=== PATIENT | male | born 1940 | race Caucasian/White ===

== ENCOUNTER 2018-05-23 07:48 | Day surgery (SDC) | payer MEDICARE, BC ==
[~2018-05-23 07:48] MED LIST: Lactated Ringers 1,000 ML IV SCH
[2018-05-23] MEDS ORDERED: Midazolam 1 MG/ML 2 ML SDV ONE (08:32)
[2018-05-23] MEDS ORDERED: fentaNYL 100 MCG/2 ML SDV ONE (08:32)
[2018-05-23] MEDS ORDERED: Propofol 200 MG/20 ML SDV ONE ×2 (08:32→10:59)
[2018-05-23] MEDS ORDERED: Lidocaine 2% 5 ML SDV ONE (08:35)
[2018-05-23] MEDS ORDERED: ePHEDrine 50 MG/ML SDV ONE (08:37)
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
[2018-05-23] MEDS ORDERED: fentaNYL 100 MCG/2 ML SDV IVPUSH PRN (09:10)
[2018-05-23] MEDS ORDERED: Bupivacaine 0.5% 10 ML SDV ONE (10:14)
[2018-05-23] MEDS ORDERED: Lidocaine 1% 20 ML MDV ONE ×2 (10:14→11:56)
[2018-05-23] MEDS ORDERED: Ketorolac 30 MG/ML SDV ONE (11:14)
[2018-05-23] MEDS ORDERED: Acetaminophen/HYDROcodone 325-5 MG Tab PO PRN (12:11)
--- NOTE | 2018-05-23 12:12 | PCM.OPNOTE ---
- General Post-Op/Procedure Note Date of Surgery/Procedure: 05/23/18 Operative Procedure(s): Excision right breast mass Pre Op Diagnosis: Palpable right breast mass. BI-RADS 4 mammogram. Post-Op Diagnosis: Right breast mass Anesthesia Technique: Local, MAC (ASA II) Primary Surgeon: Deacon Lewis Statistical Financial Analyst: Michael Clinton Condition: Good Free Text/Narrative:: DICTATION 073916 CPT CODE 30139
[2018-05-23] MEDS ORDERED: Lactated Ringers 1,000 ML IV SCH (12:15)
--- NOTE | 2018-05-23 12:16 | PCM48HPAN ---
Post Anesthesia Note - EVALUATION WITHIN 48HRS OF ANESTHETIC Vital Signs in Normal Range: Yes Patient Participated in Evaluation: Yes Respiratory Function Stable: Yes Airway Patent: Yes Cardiovascular Function Stable: Yes Hydration Status Stable: Yes Pain Control Satisfactory: Yes Nausea and Vomiting Control Satisfactory: Yes Mental Status Recovered: Yes Resp Rate: 15 - COMMENTS/OBSERVATIONS Free Text/Narrative:: direct back to phase 2, awaiting CXR
--- NOTE | 2018-05-23 12:30 | PCM.SN ---
- Free Text/Narrative Note: 1127 Dr. Lewis told the OR team that a needle "popped off". Attempts to find the needle unsuccessful. and cxr was +for suture needle. Patient was awake , alert, oriented at this time. The patient was told about the needle, and the results of the cxr. I explained that we would use conscious sedation, the patient agreed, and Dr. Lewis agreed. The needle was recovered per my OR records. The patient tolerated the procedure well, and PHASE ONE RECOVERY was bypassed.
--- NOTE | 2018-05-23 12:51 | OR ---
SURGEON: Deacon Lewis M.D. DATE OF PROCEDURE: 05/23/2018 OPERATION PERFORMED: Excision of right breast mass. VETERINARY MEDICINE SCIENTIST: LEONEL Mccormack student. ANESTHESIA: Local MAC. ASA CLASSIFICATION: II. PREOPERATIVE DIAGNOSIS: Palpable right breast mass with BI-RADS 4. POSTOPERATIVE DIAGNOSIS: Palpable right breast mass with BI-RADS 4. ESTIMATED BLOOD LOSS: 10 mL. INTRAOPERATIVE FLUID REPLACEMENT: 500 mL of crystalloid. INTRAOPERATIVE COMPLICATION: Lost needle, requiring incision to be reopened and the needle recovered. DESCRIPTION OF PROCEDURE: The patient was taken to the operating room and placed on the operating table in supine position. Surgical site had been marked prior to the patient entering the operating room. Thigh-high TEDs and sequential compression boots were placed. Monitored anesthesia care with local was provided. The right breast and chest were prepped with Betadine solution. Sterile drapes were applied. The skin incision was marked out superiorly just above the nipple-areolar complex. The skin incision was made and deepened through the subcutaneous tissue to the mass in question. Once that was encountered, using electrocautery, the mass was surgically removed in its entirety. Bleeding sites were electrocoagulated. The mass was sent on formalin to pathology for histologic diagnosis. The wound was inspected for hemostasis and small bleeding sites were electrocoagulated. The wound was then closed in 2 layers approximating the subcutaneous tissue with 3-0 Vicryl, and the skin with subcuticular 4-0 Monocryl. As the Monocryl reached the lateral end of the wound, it was obvious that the stitch had gone through the skin, I elected to pull that back. However, the needle and suture material came apart at this wedge. Initially, it was felt that the needle had fallen on the floor. The closure was completed. The wound Steri-Stripped and a sterile dressing lightly applied. We searched very carefully for the needle and could never find it. It was then elected to obtain a single-view chest x-ray and that did show the needle was still in the incision. The patient had this explained to him and the incision was re-prepped. The wound was opened up and the needle recovered and well documented. Bleeding sites were electrocoagulated. The incision was then closed with running locked 4-0 nylon and dressed with fluffs and Mefix tape. Sponge, needle, and instrument counts were now all correct. The patient did tolerate the procedure well and was taken to recovery room in stable condition. It should be noted that the first sponge, needle, and instrument counts were all correct. However, that was in air as the needle was seen on chest x-ray and subsequently removed. IDRIS / MANISHA /[id number]
[2018-05-23 13:55] VITALS: BP 156/69
--- NOTE | 2018-05-23 14:03 | CR ---
EXAMINATION: Portable chest radiograph. HISTORY: Needle removal. FINDINGS: The trachea is midline. The cardiomediastinal silhouette is within normal limits. No pulmonary infiltrates, effusions or pneumothorax. Mild interstitial prominence. No metallic foreign body. Osseous structures appear unremarkable. IMPRESSION: No acute cardiopulmonary process.
--- NOTE | 2018-05-23 14:03 | CR ---
EXAMINATION: Portable chest radiograph. HISTORY: Retained foreign body. FINDINGS: The trachea is midline. The cardiomediastinal silhouette is within normal limits. No pulmonary infiltrates, effusions or pneumothorax. There is a small metallic foreign body projecting along the right subcutaneous tissues of the thorax. Osseous structures appear unremarkable. IMPRESSION: No acute cardiopulmonary process.
== END 2018-05-23 13:25 | disposition home or self-care (01) ==
LOC: MW.SDS 07:48
PROVIDERS: ATTEND Surgery
DX: N62 Hypertrophy of breast (principal); Y78.3 Surgical instruments, materials and radiological devices (including sutures) associated with adverse incidents; Y92.234 Operating room of hospital as the place of occurrence of the external cause; I10 Essential (primary) hypertension; N40.0 Benign prostatic hyperplasia without lower urinary tract symptoms; C61 Malignant neoplasm of prostate; F32.9 Major depressive disorder, single episode, unspecified; Z87.891 Personal history of nicotine dependence; Z79.899 Other long term (current) drug therapy
CPT/HCPCS: 19125; 71045; J0131; J1885; J2001; J2250; J2704; J3010; J3490; J7120

== ENCOUNTER 2019-06-14 09:58 | Emergency (ER) | payer MEDICARE, BC ==
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
[2019-06-14 11:44] LABS: CARBON DIOXIDE,CO2 25.2 mmol/L (21.0-32.0); POTASSIUM,K 3.9 mmol/L (3.5-5.1)
--- NOTE | 2019-06-14 12:35 | CR ---
Right hand: 2 views of the right hand were obtained. Comparison: No previous hand exam is available. Scattered joint space narrowing within the MCP, DIP and PIP joints as well as IP joint of the thumb and MCP joint of the thumb. Joint space narrowing is noted off the distal navicular bone. Joint space narrowing is also noted within the CMC joint of the thumb. No acute fracture, dislocation or other bony abnormality is seen. No focal erosive change is seen to indicate definite osteomyelitis. Impression: 1. Diffuse degenerative change. 2. Nothing acute is appreciated. Diagnostic code #2 This report was dictated in [place] Standard Time
[2019-06-14 12:47] VITALS: BP 161/87; PULSE 68
== END 2019-06-14 12:55 | disposition home or self-care (01) ==
LOC: MW.ED 09:58
DX: L30.9 Dermatitis, unspecified (principal); I10 Essential (primary) hypertension; Z79.899 Other long term (current) drug therapy
CPT/HCPCS: 36415; 73120-26-RT; 73120-RT; 80048; 85025; 99282; 99283-25